=== PATIENT | male | born 2000 | race Caucasian/White ===

== ENCOUNTER 2019-08-07 12:47 | Emergency (ER) | payer OTHER ==
[~2019-08-07] VITALS: Ht 182.9 cm; Wt 65.8 kg
[~2019-08-07 12:47] MED LIST: PROMETHAZINE HC25 M1 PO; TAMIFLU75 MG PO
[2019-08-07] MEDS ORDERED: ZOFRAN4 MG PO (20:06)
== END 2019-08-07 15:08 | disposition left against medical advice (07) ==
LOC: ED 12:47
DX: R11.2 Nausea with vomiting, unspecified (principal); F41.9 Anxiety disorder, unspecified; F17.200 Nicotine dependence, unspecified, uncomplicated
CPT/HCPCS: 80053; 83690; 83735; 85025; 96374; 96375; 99284-25; J1200; J1630; U0002

== ENCOUNTER 2019-08-07 19:31 | Emergency (ER) | payer OTHER ==
[~2019-08-07] VITALS: Ht 182.9 cm; Wt 65.8 kg
--- OUTSIDE RECORDS SUMMARY | 2019-08-07 19:34 | XMS ---
PreManage Notification: YURIY DOCKERY Security Sales Professional Bilingual Events No recent Security Events currently on file CRITERIA MET - [facility] - 2 Visits in 30 Days CARE PROVIDERS There are no care providers on record at this time. Nicky has no Care Guidelines for this patient. Doris VISIT COUNT (12 MO.) [address] [facility] TOTAL 3 NOTE: Visits indicate total known visits. ED/C VISIT TRACKING (12 MO.) 08/07/2019 19:32 [facility] [place] TYPE: Emergency COMPLAINT: - VOMITING 08/07/2019 12:47 [facility] [place] TYPE: Emergency COMPLAINT: - WEAKNESS, VOMITING 02/22/2019 19:27 [facility] [place] TYPE: Emergency COMPLAINT: - HEADACHE,VOMITING/SORE THROAT DIAGNOSES: - Influenza due to other identified influenza virus with other - Nicotine dependence, unspecified, uncomplicated - Headache INPATIENT VISIT TRACKING (12 MO.) No inpatient visits to display in this time frame [id number]
[2019-08-07] MEDS ORDERED: ZOFRAN4 MG PO (20:06)
== END 2019-08-07 20:20 | disposition home or self-care (01) ==
LOC: ED 19:31
DX: B34.9 Viral infection, unspecified (principal); F17.200 Nicotine dependence, unspecified, uncomplicated
CPT/HCPCS: 99283

== ENCOUNTER 2019-08-07 23:26 | Observation (INO) | payer OTHER ==
[~2019-08-07] VITALS: Ht 182.9 cm; Wt 70.1 kg
[~2019-08-07 23:26] MED LIST changes: +ZOFRAN4 MG PO
--- OUTSIDE RECORDS SUMMARY | 2019-08-07 23:28 | XMS ---
PreManage Notification: YURIY DOCKERY Security Senior Peoplesoft Developer Events No recent Security Events currently on file CRITERIA MET - [facility] - 2 Visits in 30 Days CARE PROVIDERS There are no care providers on record at this time. Nicky has no Care Guidelines for this patient. Doris VISIT COUNT (12 MO.) [address] [facility] TOTAL 4 NOTE: Visits indicate total known visits. ED/C VISIT TRACKING (12 MO.) 08/07/2019 23:[address] [facility] [place] TYPE: Emergency COMPLAINT: - VOMITING 08/07/2019 19:32 [facility] [place] TYPE: Emergency COMPLAINT: - VOMITING 08/07/2019 12:47 [facility] [place] TYPE: Emergency COMPLAINT: - WEAKNESS, VOMITING 02/22/2019 19:27 [facility] [place] TYPE: Emergency COMPLAINT: - HEADACHE,VOMITING/SORE THROAT DIAGNOSES: - Influenza due to other identified influenza virus with other - Nicotine dependence, unspecified, uncomplicated - Headache INPATIENT VISIT TRACKING (12 MO.) No inpatient visits to display in this time frame [id number]
--- NOTE | 2019-08-08 02:28 | NUR ---
TELEPHONE REPORT RECEIVED FROM ED RN HAIDER. AWAITING PT'S ARRIVAL.
--- NOTE | 2019-08-08 02:46 | NUR ---
VITALS DONE AND CHARTED. TELE PUT ON. WARM BLANKETS GIVEN. BEDSIDE TABLE AND CALL LIGHT IN REACH.
--- NOTE | 2019-08-08 02:50 | NUR ---
PT ARRIVED TO FLOOR VIA STRETCHER, PT AMBULATED OVER TO BED ON HIS OWN. HE HAD 400MLS OF EMESIS. COMPLETED ADMISSION HX. PRIMARY RN JACK IS NOW IN THE ROOM WITH PT.
--- NOTE | 2019-08-08 03:00 | NUR ---
ASSESSMENT COMPLETE, VSS. PT DROWSY, BUT AWAKENS EASILY. DENIES NAUSEA, RECENT EMESIS NOTED. REPORTS TOLERABLE 3/10 PAIN. REPORTS SOB ON EXERTION AT TIMES, O2 SAT WNL ON RA. LUNG SOUNDS CLEAR, BILATERAL NECK CREPITUS NOTED. NO DISTRESS AT THIS TIME, PT APPEARS COMFORTABLE. ORIENTED TO ROOM, CALL LIGHT IN REACH.
--- NOTE | 2019-08-08 04:08 | NUR ---
PT RESTING QUIETLY IN BED, RESPIRATIONS EVEN AND UNLABORED. NO DISTRESS NOTED, CPOX IN PLACE. O2 SAT UPPER 90'S ON RA, HR 80'S VIA TELE#5, NORMAL SINUS. CALL LIGHT IN REACH.
--- NOTE | 2019-08-08 06:12 | NUR ---
VSS AND I&O'S COLLECTED. PT SALINE LOCKED, AWAITING BRI FROM IMAGING TO TAKE PT DOWN FOR SCHEDULED CHEST X-RAY. PT STATES HE IS "FEELING A LOT BETTER". DENIES NEED FOR PAIN OR NAUSEA MEDICATION.
--- NOTE | 2019-08-08 06:14 | NUR ---
BRI FROM IMAGING TO TAKE PT VIA WHEELCHAIR FOR X-RAY.
--- NOTE | 2019-08-08 06:25 | NUR ---
PT BACK FROM IMAGING, IV FLUIDS RESUMED. PT DENIES NEEDS, CALL LIGHT IN REACH.
--- NOTE | 2019-08-08 06:35 | NUR ---
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 NPO, INITIAL EMESIS X1, RESOLVED INDEPENDENTLY. PAIN REMAINED TOLERABLE, PRN MEDICATIONS AVAILABLE. SBA, CALLS APPROPERIATELY. VOIDING QS, NO BM. IV FLUIDS INFUSING AT 125MLS/HR, SITE WNL. VSS, TELE#5, SINUS RHYTHM.
--- NOTE | 2019-08-08 07:35 | NUR ---
Pt resting in bed, resp even and non labored. Pt has no distress noted. Personal supplies and call light within reach. No needs at this time.
--- NOTE | 2019-08-08 09:01 | NUR ---
Pt sitting up in bed requesting to leave the hospital before 11am today for an appt. Discussed this with Dr. Pepper regarding this. Dr. Pepper stated he will see pt a/s/a/p.
--- NOTE | 2019-08-08 09:27 | NUR ---
PATIENT SITTING AT BEDSIDE, VITALS DONE AND CHARTED. PATIENT AXIOUS TO SEE MD AND LEAVE HOSPITAL. CALL LIGHT IN REACH. REFUSED ADLS, "WILL DO IT ALL AT HOME" NO OTHER NEEDS AT THIS TIME
--- NOTE | 2019-08-08 10:02 | NUR ---
TALKED WITH PT ABOUT STAYING TILL DR GANDHI WAS OUT OF SURGERY. PT REFUSING TO WAIT AT THIS TIME. INFORMED PT THAT HE SHOULD STAY DUE TO HIS CONDITION. PT CONTIOUES TO REFUSE. PT STATES "I HAVE TO GO MET A DONNY ABOUT MY PAY DUE TO IT IS MESSED UPED." AMA FORM FILLED OUT AND GIVEN TO PT TO SIGN BY HIS NURSE.
--- NOTE | 2019-08-08 10:10 | NUR ---
Pt leaving against medical advice as he states he has an appt this am and "can't wait for the doctor". Education provided to pt regarding risks. Paperwork completed prior to d/c.
--- NOTE | 2019-08-08 10:20 | NUR ---
PATIENT UP IN CHAIR, VITALS AND I&OS DONE. THIS KINDER TEACHER AMBULATED HALLS WITH PATIENT 2X AROUND NURSES STATION. CALL LIGHT IN REACH. NO OTHER NEEDS AT THIS TIME.
--- NOTE | 2019-08-09 12:32 | EKG ---
[facility] [address] [place], [place] [address] Signed Normal sinus rhythm Normal ECG No previous ECGs available Confirmed by TOBI VARGAS DO ([id number]) on 08/09/2019 12:32:34 PM Electronically Signed By: TOBI VARGAS DO 08/09/19 1232 PATIENT NAME: YURIY DOCKERY Electrocardiogram DATE OF : [birth year] PHYSICIAN: TOBI VARGAS DO REPORT #: [id number] REPORT IS CONFIDENTIAL AND NOT TO BE RELEASED WITHOUT AUTHORIZATION
== END 2019-08-08 10:10 | disposition left against medical advice (07) ==
LOC: ED 23:26 → MS 23:27
PROVIDERS: ADMIT Colon & Rectal Surgery
DX: J98.2 Interstitial emphysema (principal); F17.200 Nicotine dependence, unspecified, uncomplicated; Z53.29 Procedure and treatment not carried out because of patient's decision for other reasons
CPT/HCPCS: 71046; 71250; 80053; 83690; 85025; 93005; 93010; 94760; 94762; 96361; 96374; 96375; 99285-25; G0378; J1170; J1790; J2550; J3480; J7030

== ENCOUNTER 2019-10-25 12:42 | Emergency (ER) | payer OTHER ==
[~2019-10-25] VITALS: Ht 182.9 cm; Wt 65.8 kg
[2019-10-25] MEDS ORDERED: AUGMENTIN 875-1 EACH PO (19:13)
== END 2019-10-25 13:54 | disposition left against medical advice (07) ==
LOC: ED 12:42
DX: Z53.21 Procedure and treatment not carried out due to patient leaving prior to being seen by health care provider (principal)

== ENCOUNTER 2019-10-25 17:38 | Emergency (ER) | payer OTHER ==
[~2019-10-25] VITALS: Ht 182.9 cm; Wt 65.8 kg
--- OUTSIDE RECORDS SUMMARY | 2019-10-25 17:40 | XMS ---
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 Nicky has no Care Guidelines for this patient. E.D. VISIT COUNT (12 MO.) 6 [facility] TOTAL 6 NOTE: Visits indicate total known visits. ED[facility] VISIT TRACKING (12 MO.) [facility]2019 17:39 [facility] [place] [facility] COMPLAINT: - R HAND PAIN/INJ 10/25/2019 12:43 [facility] [place] TYPE: Emergency COMPLAINT: - RIGHT HAND INJ/LAC 08/07/2019 23:26 [facility] [place] TYPE: Emergency COMPLAINT: - VOMITING 08/07/2019 19:32 [facility] [place] TYPE: Emergency COMPLAINT: - VOMITING DIAGNOSES: - Nicotine dependence, unspecified, uncomplicated - Viral infection, unspecified - Nausea with vomiting, unspecified 08/07/2019 12:47 [facility] [place] TYPE: Emergency COMPLAINT: - WEAKNESS, VOMITING DIAGNOSES: - Contact with and (suspected) exposure to other viral communic - Nicotine dependence, unspecified, uncomplicated - Nausea with vomiting, unspecified - Anxiety disorder, unspecified 02/22/2019 19:27 [facility] [place] TYPE: Emergency COMPLAINT: - HEADACHE,VOMITING/SORE THROAT DIAGNOSES: - Influenza due to other identified influenza virus with other - Nicotine dependence, unspecified, uncomplicated - Headache INPATIENT VISIT TRACKING (12 MO.) 08/07/2019 23:27 [facility] [place] TYPE: Observation COMPLAINT: - PNEUMOMEDIASTINUM DIAGNOSES: - Procedure and treatment not carried out because of patient's - Nicotine dependence, unspecified, uncomplicated - Interstitial emphysema - Nausea with vomiting, unspecified [id number]
[2019-10-25] MEDS ORDERED: AUGMENTIN 875-1 EACH PO (19:13)
== END 2019-10-25 19:23 | disposition home or self-care (01) ==
LOC: ED 17:38
PROC: 0XQJXZZ Repair Right Hand, External Approach (ICD-10-PCS; principal; 2019-10-25)
DX: S61.411A Laceration without foreign body of right hand, initial encounter (principal); F17.200 Nicotine dependence, unspecified, uncomplicated; W50.0XXA Accidental hit or strike by another person, initial encounter
CPT/HCPCS: 12001; 73130; 99283-25

== ENCOUNTER 2021-06-09 05:03 | Emergency (ER) | payer OTHER ==
[~2021-06-09] VITALS: Ht 182.9 cm; Wt 65.8 kg
[~2021-06-09 05:03] MED LIST changes: +AUGMENTIN 875-1 EACH PO
--- OUTSIDE RECORDS SUMMARY | 2021-06-09 05:10 | XMS ---
PreManage Notification: YURIY DOCKERY Security Tacking Machine Operator Events No recent Security Events currently on file CRITERIA MET - [facility] - 3 Facilities in 90 Days CARE PROVIDERS There are no care providers on record at this time. Nicky has no Care Guidelines for this patient. Care History Medical/Surgical 10/26/2019 [facility] - [facility]W CONTACTED PATIENT- TO ESTABLISH CARE WITH A PROVIDER IN THE AREA. - PATIENT STATED HE WON\T\#39;T ESTABLISH CARE WITH A PROVIDER AND HE WON\T\ #39;T FOLLOW THROUGH SO DON\T\#39;T BOTHER. - NO PCP LETTER SENT TO [facility]. Doris VISIT COUNT (12 MO.) 1 [facility] [address] TOTAL 5 NOTE: Visits indicate total known visits. ED/UCC VISIT TRACKING (12 MO.) 06/09/2021 05:[address] [facility] [place] TYPE: Emergency COMPLAINT: - VOMITING 04/11/2021 02:12 [facility] TYPE: Emergency DIAGNOSES: - Nausea with vomiting, unspecified - Diarrhea, unspecified - Diarrhea - Vomiting 04/10/2021 22:52 [facility] TYPE: Emergency DIAGNOSES: - Nausea/vomiting - Cough - VOMITTING, BODY NUMBNESS 03/12/2021 18:59 [facility] [place] [facility] TYPE: Emergency DIAGNOSES: - vomiting/anxiety attack - Nausea/vomiting - Panic Attack - Nausea with vomiting, unspecified 03/10/2021 22:49 [facility] TYPE: Emergency DIAGNOSES: - Alcohol Problem - Nausea with vomiting, unspecified - Cannabis use, unspecified, uncomplicated - Anxiety INPATIENT VISIT TRACKING (12 MO.) No inpatient visits to display in this time frame [id number]
[2021-06-09] MEDS ORDERED: K-TAB ER20 MEQ PO (07:29)
[2021-06-09] MEDS ORDERED: ONDANSETRON ODT8 MG PO (07:29)
[2021-06-09] MEDS ORDERED: OMEPRAZOLE20 MG PO (18:53)
== END 2021-06-09 07:47 | disposition home or self-care (01) ==
LOC: ED 05:03
DX: F10.10 Alcohol abuse, uncomplicated (principal); F17.200 Nicotine dependence, unspecified, uncomplicated
CPT/HCPCS: 36415; 74177; 80053; 81001; 83690; 85025; 96375; 99284-25; J1790; J2270; J2405; J7030; Q9967

== ENCOUNTER 2021-06-09 15:25 | Emergency (ER) | payer OTHER ==
[~2021-06-09] VITALS: Ht 182.9 cm; Wt 65.8 kg
[~2021-06-09 15:25] MED LIST changes: +K-TAB ER20 MEQ PO; +ONDANSETRON ODT8 MG PO
--- OUTSIDE RECORDS SUMMARY | 2021-06-09 15:34 | XMS ---
PreManage Notification: YURIY DOCKERY Security Tenterer Events No recent Security Events currently on file CRITERIA MET - [facility] - 2 Visits in 30 Days - 6 ED Visits in 6 Months - [facility] - 3 Facilities in 90 Days CARE PROVIDERS There are no care providers on record at this time. Nicky has no Care Guidelines for this patient. Care History Medical/Surgical 10/26/2019 [facility] - CHW CONTACTED PATIENT- TO ESTABLISH CARE WITH A PROVIDER IN THE AREA. - PATIENT STATED HE WON\T\#39;T ESTABLISH CARE WITH A PROVIDER AND HE WON\T\ #39;T FOLLOW THROUGH SO DON\T\#39;T BOTHER. - NO PCP LETTER SENT TO [facility]. Doris VISIT COUNT (12 MO.) 1 [facility] [address] TOTAL 6 NOTE: Visits indicate total known visits. ED/UCC VISIT TRACKING (12 MO.) 06/09/2021 15:26 [facility] [place] TYPE: Emergency COMPLAINT: - VOMITING 06/09/2021 05:04 [facility] [place] TYPE: Emergency COMPLAINT: - VOMITING 04/11/2021 02:12 [facility] [place] TYPE: Emergency DIAGNOSES: - Nausea with vomiting, unspecified - Diarrhea, unspecified - Diarrhea - Vomiting 04/10/2021 22:52 [facility] TYPE: Emergency DIAGNOSES: - Nausea/vomiting - Cough - VOMITTING, BODY NUMBNESS 03/12/2021 18:59 [facility] TYPE: Emergency DIAGNOSES: - vomiting/anxiety attack - Nausea/vomiting - Panic Attack - Nausea with vomiting, unspecified 03/10/2021 22:49 [facility] TYPE: Emergency DIAGNOSES: - Alcohol Problem - Nausea with vomiting, unspecified - Cannabis use, unspecified, uncomplicated - Anxiety INPATIENT VISIT TRACKING (12 MO.) No inpatient visits to display in this time frame [id number]
[2021-06-09] MEDS ORDERED: OMEPRAZOLE20 MG PO (18:53)
== END 2021-06-09 19:11 | disposition home or self-care (01) ==
LOC: ED 15:25
DX: K92.0 Hematemesis (principal); F17.200 Nicotine dependence, unspecified, uncomplicated; Z79.899 Other long term (current) drug therapy
CPT/HCPCS: 36415; 80053; 83690; 85025; 96374; 96375; 99284-25; J1790; J3480; J7030; J7121

== ENCOUNTER 2021-11-11 07:03 | Emergency (ER) | payer OTHER ==
[~2021-11-11] VITALS: Ht 182.9 cm; Wt 62.3 kg
[~2021-11-11 07:03] MED LIST changes: +OMEPRAZOLE20 MG PO
== END 2021-11-11 09:37 | disposition home or self-care (01) ==
LOC: ED 07:03
DX: R11.2 Nausea with vomiting, unspecified (principal); R10.9 Unspecified abdominal pain; F17.200 Nicotine dependence, unspecified, uncomplicated; Z20.822 Contact with and (suspected) exposure to COVID-19
CPT/HCPCS: 36415; 71045; 80053; 83690; 85025; C9803; J2405; J7030; U0003

== ENCOUNTER 2022-01-18 13:39 | Emergency (ER) | payer OTHER ==
[~2022-01-18] VITALS: Ht 182.9 cm; Wt 64.4 kg
[2022-01-18] MEDS ORDERED: ONDANSETRON ODT8 MG PO ×2 (14:01→21:17)
[2022-01-18] MEDS ORDERED: POTASSIUM CHLO20 ME1 PO (14:01)
== END 2022-01-18 15:08 | disposition left against medical advice (07) ==
LOC: ED 13:39
DX: R11.11 Vomiting without nausea (principal); F12.90 Cannabis use, unspecified, uncomplicated; Z53.29 Procedure and treatment not carried out because of patient's decision for other reasons
CPT/HCPCS: 36415; 80053; 81001; 83690; 83735; 85025; 96374; 96375; 99284-25; J1200; J1790; J2405; J7030

== ENCOUNTER 2022-01-18 17:37 | Emergency (ER) | payer OTHER ==
[~2022-01-18] VITALS: Ht 182.9 cm; Wt 64.4 kg
[~2022-01-18 17:37] MED LIST changes: +POTASSIUM CHLO20 ME1 PO
--- OUTSIDE RECORDS SUMMARY | 2022-01-18 17:44 | XMS ---
PreManage Notification: YURIY DOCKERY Security Hide Splitter Events 1 event(s) in the past 18 months Most recent security events: Elopement at [facility] 11/13/2021 20:25 - Patient eloped before treatment completed. - Patient with suicidal and/or homicidal ideations eloped. - Patient eloped with IV in place. Details: PATIENT LEFT AMA CRITERIA MET - [facility] - 2 Visits in 30 Days CARE PROVIDERS There are no care providers on record at this time. Nicky has no Care Guidelines for this patient. Care History Medical/Surgical 10/26/2019 [facility] - CHW CONTACTED PATIENT- TO ESTABLISH CARE WITH A PROVIDER IN THE AREA. - PATIENT STATED HE WON\T\#39;T ESTABLISH CARE WITH A PROVIDER AND HE WON\T\ #39;T FOLLOW THROUGH SO DON\T\#39;T BOTHER. - NO PCP LETTER SENT TO [facility]. Jeremie. VISIT COUNT (12 MO.) 1 [facility] [address] TOTAL 11 NOTE: Visits indicate total known visits. ED/UCC VISIT TRACKING (12 MO.) 01/18/2022 17:37 [facility] [place] TYPE: Emergency COMPLAINT: - ABDOMINAL PAIN 01/18/2022 13:40 [facility] [place] TYPE: Emergency COMPLAINT: - ABD PAIN, VOMITING, BODY NUMBNESS 11/13/2021 20:25 [facility] [place] TYPE: Emergency COMPLAINT: - ABD PAIN, VOMITING, NAUSEA DIAGNOSES: - Epigastric pain - Nicotine dependence, unspecified, uncomplicated - Hypokalemia - Unspecified chronic gastritis without bleeding 11/13/2021 16:52 [facility] [place] TYPE: Emergency COMPLAINT: - ABDOMINAL PAIN 11/11/2021 07:03 [facility] [place] TYPE: Emergency COMPLAINT: - ABD PAIN DIAGNOSES: - Nicotine dependence, unspecified, uncomplicated - Nausea with vomiting, unspecified - Contact with and (suspected) exposure to COVID-19 - Unspecified abdominal pain 06/09/2021 15:26 [facility] [place] TYPE: Emergency COMPLAINT: - VOMITING DIAGNOSES: - Hematemesis - Other watermaster (current) drug therapy - Right lower quadrant pain - Nicotine dependence, unspecified, uncomplicated 06/09/2021 05:04 [facility] [place] [facility] [place] TYPE: Emergency COMPLAINT: - VOMITING DIAGNOSES: - Unspecified abdominal pain - Nicotine dependence, unspecified, uncomplicated - Alcohol abuse, uncomplicated 04/11/2021 02:12 [facility] TYPE: Emergency DIAGNOSES: - Diarrhea - Nausea with vomiting, unspecified - Vomiting - Diarrhea, unspecified 04/10/2021 22:52 [facility] TYPE: Emergency DIAGNOSES: - VOMITTING, BODY NUMBNESS - Nausea/vomiting - Cough 03/12/2021 18:59 [facility] TYPE: Emergency DIAGNOSES: - Panic Attack - vomiting/anxiety attack - Nausea with vomiting, unspecified - Nausea/vomiting 03/10/2021 22:49 [facility] TYPE: Emergency DIAGNOSES: - Cannabis use, unspecified, uncomplicated - Alcohol Problem - Anxiety - Nausea with vomiting, unspecified INPATIENT VISIT TRACKING (12 MO.) No inpatient visits to display in this time frame [id number]
[2022-01-18] MEDS ORDERED: ONDANSETRON ODT8 MG PO (21:17)
== END 2022-01-18 21:36 | disposition home or self-care (01) ==
LOC: ED 17:37
DX: R11.2 Nausea with vomiting, unspecified (principal); F12.90 Cannabis use, unspecified, uncomplicated; F17.200 Nicotine dependence, unspecified, uncomplicated
CPT/HCPCS: 96361; 96374; 96375; 99284-25; J1200; J1790; J2405; J7030